=== PATIENT | female | born 1950 | race Caucasian/White ===

== ENCOUNTER 2018-01-31 15:26 | Outpatient (CLI) | payer MEDICARE | END 2018-01-31 15:27 | disposition home or self-care (01) | LOC: BICMAMMO 15:26 | PROVIDERS: ATTEND Family Medicine | DX: Z12.31 Encounter for screening mammogram for malignant neoplasm of breast (principal) | CPT/HCPCS: 77063; 77067 ==

== ENCOUNTER 2018-10-19 10:25 | Outpatient (CLI) | payer MEDICARE ==
[~2018-10-19 10:25] MED LIST: Gadobenate Dimeglumine 529 MG/1 ML (20ML VIAL) ONE
--- NOTE | 2018-10-19 13:45 | MRI ---
MRI BRAIN WITH AND WITHOUT CONTRAST: HISTORY: A 68-year-old female with G35, multiple sclerosis diagnosed in 1994. Followup. TECHNIQUE: Multiple sequences obtained in axial, sagittal, and coronal planes; pre and post IV injection of gado linium-based contrast agent: 12 mL of MultiHance. COMPARISON: 01/19/2017 and 12/31/2015. FINDINGS: The ventricles are normal in size and configuration. There is no restricted diffusion, abnormal intr aaxial enhancement, mass, midline shift or any other mass effect, recent intraaxial hemorrhage, or ex traaxial fluid collection. There is a moderate degree of T2-hyperintensities in the cerebral white ma tter. The white matter lesions do not involve the undersurface of the corpus callosum, and do not in volve brachium pontis (middle cerebellar peduncles). There has been no significant interval change c ompared to 01/19/2017 and 12/31/2015. IMPRESSION: 1. A moderate amount of T2 hyperintense signal abnormalities in the cerebral white matter. In a ry ent of this age, this has the appearance of a moderate degree of chronic ischemic white matter change s due to microvascular atherosclerosis. However, in light of the stated history of multiple sclerosis , it is possible that some of this could represent multiple sclerosis. 2. No interval change since 12/31/2015. [email or web address][] POS: LESLY
== END 2018-10-19 10:26 | disposition home or self-care (01) ==
LOC: BICMRI 10:25
PROVIDERS: ATTEND Nurse Practitioner Acute Care
DX: G35 Multiple sclerosis (principal); I67.2 Cerebral atherosclerosis; I67.82 Cerebral ischemia
CPT/HCPCS: 70553; 82565; A9579

== ENCOUNTER 2019-12-04 15:38 | Outpatient (CLI) | payer MEDICARE ==
--- NOTE | 2019-12-04 16:11 | MMO ---
Bilateral MAMMO Bilat Screen [facility]. CLINICAL HISTORY: Patient is 69 years old and is seen for screening. The patient has no family history of breast cancer. The patient has no personal history of cancer. The patient has a history of left Excisional Biopsy in 1990 - benign. VIEWS: The views performed were: bilateral craniocaudal with tomosynthesis and bilateral mediolateral oblique with tomosynthesis. FILMS COMPARED: The present examination has been compared to prior imaging studies performed at [facility] on 01/31/2018, and at [facility] on 12/23/2016. This study has been interpreted with the assistance of computer-aided detection. MAMMOGRAM FINDINGS: The breasts are heterogeneously dense, which could obscure a lesion on mammography. There are stable benign appearing calcifications seen in both breasts. There are no suspicious masses, suspicious calcifications, or new areas of architectural distortion. IMPRESSION: THERE IS NO MAMMOGRAPHIC EVIDENCE OF MALIGNANCY. A ROUTINE FOLLOW-UP MAMMOGRAM IN 1 YEAR IS RECOMMENDED. THE RESULTS OF THIS EXAM WERE SENT TO THE PATIENT. ACR BI-RADS Category 2 - Benign finding MAMMOGRAPHY NOTE: 1. A negative mammogram report should not delay a biopsy if a dominant of clinically suspicious mass is present. 2. Approximately 10% to 15% of breast cancers are not detected by mammography. 3. Adenosis and dense breasts may obscure an underlying neoplasm. Reported by: ARLENE THOMAS MD Electonically Signed: [id number]
== END 2019-12-04 15:39 | disposition home or self-care (01) ==
LOC: BICMAMMO 15:38
PROVIDERS: ATTEND Family Medicine
DX: Z12.31 Encounter for screening mammogram for malignant neoplasm of breast (principal)
CPT/HCPCS: 77063; 77067

== ENCOUNTER 2020-05-04 13:47 | Outpatient (CLI) | payer MEDICARE ==
[~2020-05-04 13:47] MED LIST changes: -Gadobenate Dimeglumine 529 MG/1 ML (20ML VIAL) ONE; +Magnevist 469MG/ML 20 ML VIAL ONE
--- NOTE | 2020-05-04 15:08 | MRI ---
BRAIN MRI WITH AND WITHOUT CONTRAST: Date: 05/04/2020 COMPARISON: 10/19/2018. HISTORY: Multiple sclerosis. TECHNIQUE: Multiplanar, multisequence MR imaging of the brain is obtained with and without contrast. FINDINGS: The diffusion-weighted imaging demonstrates no evidence for acute infarction. There is extensive multifocal confluent periventricular deep and subcortical white matter T2 and FLAI R hyperintensity, which does not appear significantly changed when compared to the prior exam. There is mild patchy increased T2/FLAIR signal seen within the alexa. The corpus callosum appears grossly unremarkable. There is no midline shift, mass effect, or ventricular enlargement. Regional bone marrow signal inten sity appears within normal limits. Postcontrast imaging demonstrates no abnormal enhancement within the brain parenchyma. IMPRESSION: Stable white matter disease as detailed above, not significantly changed when compared to the prior s devyndy performed 10/19/2018. No acute findings. POS: AH
== END 2020-05-04 13:48 | disposition home or self-care (01) ==
LOC: TBSIIMAG 13:47
PROVIDERS: ATTEND Nurse Practitioner Acute Care
DX: G35 Multiple sclerosis (principal); R90.82 White matter disease, unspecified
CPT/HCPCS: 70553; 82565; A9579

== ENCOUNTER 2021-01-18 12:51 | Outpatient (CLI) | payer OTHER, MEDICARE | END 2021-01-18 12:52 | disposition home or self-care (01) | LOC: BICMAMMO 12:51 | PROVIDERS: ATTEND Physician Assistant | DX: Z12.31 Encounter for screening mammogram for malignant neoplasm of breast (principal); Z91.89 Other specified personal risk factors, not elsewhere classified | CPT/HCPCS: 77063; 77067 ==

== ENCOUNTER 2021-04-12 13:53 | Outpatient (CLI) | payer MEDICARE | END 2021-04-12 13:54 | disposition home or self-care (01) | LOC: BICMRI 13:53 | PROVIDERS: ATTEND Nurse Practitioner Acute Care | DX: G35 Multiple sclerosis (principal); R90.89 Other abnormal findings on diagnostic imaging of central nervous system | CPT/HCPCS: 70553; 82565; A9579 ==

== ENCOUNTER 2022-04-01 13:33 | Outpatient (CLI) | payer MEDICARE | END 2022-04-01 13:34 | disposition home or self-care (01) | LOC: BICMAMMO 13:33 | PROVIDERS: ATTEND Physician Assistant | DX: Z12.31 Encounter for screening mammogram for malignant neoplasm of breast (principal); Z91.89 Other specified personal risk factors, not elsewhere classified | CPT/HCPCS: 77063; 77067 ==

== ENCOUNTER 2023-01-17 12:12 | Outpatient (CLI) | payer MEDICARE | END 2023-01-17 12:13 | disposition home or self-care (01) | LOC: SCSMRI 12:12 | PROVIDERS: ATTEND Psychiatry & Neurology Neurology | DX: G35 Multiple sclerosis (principal); I67.82 Cerebral ischemia | CPT/HCPCS: 70553; 72156; 72157 ==

== ENCOUNTER 2023-05-29 13:47 | Outpatient (CLI) | payer MEDICARE | END 2023-05-29 13:48 | disposition home or self-care (01) | LOC: BICMAMMO 13:47 | PROVIDERS: ATTEND Physician Assistant | DX: Z12.31 Encounter for screening mammogram for malignant neoplasm of breast (principal) | CPT/HCPCS: 77063; 77067 ==

== ENCOUNTER 2024-07-08 11:34 | Outpatient (CLI) | payer MEDICARE | END 2024-07-08 11:35 | disposition home or self-care (01) | LOC: BICMAMMO 11:34 | PROVIDERS: ATTEND Physician Assistant | DX: Z12.31 Encounter for screening mammogram for malignant neoplasm of breast (principal); Z91.89 Other specified personal risk factors, not elsewhere classified | CPT/HCPCS: 77063; 77067 ==

== ENCOUNTER 2025-08-25 12:32 | Outpatient (CLI) | payer MEDICARE | END 2025-08-25 12:33 | disposition home or self-care (01) | LOC: BICMAMMO 12:32 | PROVIDERS: ATTEND Physician Assistant | DX: Z12.31 Encounter for screening mammogram for malignant neoplasm of breast (principal); Z91.89 Other specified personal risk factors, not elsewhere classified | CPT/HCPCS: 77063; 77067 ==